=== PATIENT | male | born 1995 | race Caucasian/White ===

== ENCOUNTER 2016-10-30 16:41 | Emergency (ER) | payer SELFPAY ==
[2016-10-30 16:42] VITALS: BMI 24.2
[2016-10-30] MEDS ORDERED: Amoxicillin-Clav 500-125 mg Tab PO STA (18:33)
[2016-10-30] MEDS ORDERED: Amoxicillin-Clav 500-125 mg Tab PO ONE (18:38)
--- NOTE | 2016-10-30 19:09 | C.PDOC ---
History Of Present Illness 21 y/o male presents to the ED with complains of fever, headache and sore throat since yesterday. Pt denies cough, SOB, vomiting, diarrhea or any other complaints. NKDA. Time Seen by Provider: 10/30/16 17:35 Chief Complaint (Nursing): Fever History Per: Patient History/Exam Limitations: no limitations Onset/Duration Of Symptoms: Hrs Current Symptoms Are (Timing): Still Present Location Of Pain: Throat, Headache Sick Contacts (Context): None Associated Symptoms: Fever, Sore Throat. denies: Cough, Vomiting, Diarrhea Severity: Moderate Recent travel outside of the [place]: No Past Medical History Reviewed: Historical Data, Nursing Documentation, Vital Signs Vital Signs: Last Vital Signs Temp 100 F H 10/30/16 19:28 Pulse 82 10/30/16 19:28 Resp 17 10/30/16 19:28 BP 119/65 10/30/16 19:28 Pulse Ox 99 10/30/16 19:28 - [facility] Procedures CLOSURE SKIN & SUBCUTANEOUS NEC (05/18/14) TETANUS TOXOID ADMINIST (05/18/14) Family History: States: Unknown Family Hx - Social History Hx Tobacco Use: No Hx Alcohol Use: No Hx Substance Use: No - Immunization History Hx Tetanus Toxoid Vaccination: No Hx Influenza Vaccination: No Hx Pneumococcal Vaccination: No Review Of Systems Except As Marked, All Systems Reviewed And Found Negative. Constitutional: Positive for: Fever ENT: Positive for: Throat Pain Respiratory: Negative for: Cough, Shortness of Breath Gastrointestinal: Negative for: Vomiting, Diarrhea Neurological: Positive for: Headache Physical Exam - Physical Exam Appears: Non-toxic, No Acute Distress Skin: Warm, Dry, No Rash Head: Atraumatic, Normacephalic Nose: Normal Oral Mucosa: Moist Throat: Other (tonsillar erythema and exudates) Neck: Normal ROM, Supple Lymphatic: Adenopathy (cervical) Chest: Symmetrical Cardiovascular: Rhythm Regular, No Murmur Respiratory: Normal Breath Sounds, No Rales, No Rhonchi, No Wheezing Extremity: Bilateral: Atraumatic Neurological/Psych: Oriented x3 ED Course And Treatment O2 Sat by Pulse Oximetry: 97 (on room air) Pulse Ox Interpretation: Normal Medical Decision Making Medical Decision Making: Plan: dose abx and motrin in ED. Send home with prescriptions Disposition - Disposition Referrals: [facility] [Outside] Disposition: HOME/ ROUTINE Disposition Time: 19:17 Condition: GOOD Additional Instructions: Follow up with the medical doctor within 1-2 days. Return if worsened. Prescriptions: Amoxicillin [Amoxil 500 mg Cap] 500 mg PO TID #29 cap Ibuprofen [Motrin] 600 mg PO TID #21 tab Instructions: Pharyngitis (ED) Forms: School Excuse, Work Excuse Print Language: TURKMEN - Clinical Impression Clinical Impression: Pharyngitis - PA / [employer] / Resident Statement MD/DO has reviewed & agrees with the documentation as recorded. - Scribe Statement The provider has reviewed the documentation as recorded by the Scribsincere Stevens All medical record entries made by the Billy were at my direction and personally dictated by me. I have reviewed the chart and agree that the record accurately reflects my personal performance of the history, physical exam, medical decision making, and the department course for this patient. I have also personally directed, reviewed, and agree with the discharge instructions and disposition.
[2016-10-30 19:35] VITALS: BP 119/65; PULSE 82; RESP 17; TEMP 100
[2016-11-03 04:52] VITALS: O2SAT 97
== END 2016-10-30 19:42 | disposition home or self-care (01) ==
LOC: C.ER 16:41
DX: J02.9 Acute pharyngitis, unspecified (principal)